=== PATIENT | female | born 1990 | race American Indian/Alaskan Native ===

== ENCOUNTER 2016-09-27 21:25 | Emergency (ER) | payer SELFPAY ==
[2016-09-27 21:50] VITALS: BP 116/70
[2016-09-27 22:35] LABS: Basophils % (Auto) 0.9 % (0.0-1.8); Eosinophils % (Auto) 1.4 % (0.0-4.3); Hematocrit 38.2 % (30.3-42.9); Hemoglobin 12.2 gm/dl (10.1-14.3); Mean Corpuscular HGB Conc 32 % (30-34); Mean Corpuscular Volume 78 fl (79-97); Platelet Count 242 K/mm3 (140-440); Red Blood Count 4.91 M/mm3 (3.65-5.03); Red Cell Distribution Width 16.8 % (13.2-15.2); White Blood Count 3.7 K/mm3 (4.5-11.0)
[2016-09-27 22:39] LABS: Mean Corpuscular Hemoglobin 25 pg (28-32)
[2016-09-27 22:49] LABS: Bilirubin,Urine NEG (Negative); Blood,Urine NEG (Negative); Ketones,Urine NEG (Negative); Leukocyte Esterase,Urine NEG (Negative); Nitrite,Urine NEG (Negative); Protein,Urine <15 mg/dL mg/dL (Negative); RBC,Urine < 1.0 /HPF (0.0-6.0); Urobilinogen,Urine < 2.0 mg/dL (<2.0); WBC,Urine < 1.0 /HPF (0.0-6.0)
[2016-09-27 22:55] LABS: Alanine Aminotransferase 14 units/L (7-56); Albumin 4.3 g/dL (3.9-5); Albumin/Globulin Ratio 1.4 %; Alkaline Phosphatase 71 units/L (35-129); Anion Gap 19 mmol/L; BUN/Creatinine Ratio 16.66; Bilirubin,Total 0.4 mg/dL (0.1-1.2); Blood Urea Nitrogen 10 mg/dL (7-17); Calcium 8.8 mg/dL (8.4-10.2); Carbon Dioxide 24 mmol/L (22-30); Chloride 99.2 mmol/L (98-107); Glucose 81 mg/dL (65-100); Lipase 18 units/L (13-60); Potassium 3.9 mmol/L (3.6-5.0); Sodium 138 mmol/L (137-145); Total Protein 7.3 g/dL (6.3-8.2)
--- NOTE | 2016-09-29 12:09 | ED Elopement Review ---
ED Pt Elopement review - Results review Lab results: Laboratory Tests 09/27/16 09/27/16 09/27/16 22:15 22:15 22:25 WBC 3.7 L RBC 4.91 Hgb 12.2 Hct 38.2 MCV 78 L MCH 25 L MCHC 32 RDW 16.8 H Plt Count 242 Lymph % (Auto) 45.2 H [place] % (Auto) 9.0 H Eos % (Auto) 1.4 Baso % (Auto) 0.9 Lymph # 1.7 [place] # 0.3 Eos # 0.1 Baso # 0.0 Seg Neutrophils % 43.5 Seg Neutrophils # 1.6 L Sodium 138 Potassium 3.9 Chloride 99.2 Carbon Dioxide 24 Anion Gap 19 BUN 10 Creatinine 0.6 L Estimated GFR > 60 BUN/Creatinine Ratio 16.66 Glucose 81 Calcium 8.8 Total Bilirubin 0.4 AST 23 ALT 14 Alkaline Phosphatase 71 Total Protein 7.3 Albumin 4.3 Albumin/Globulin Ratio 1.4 Lipase 18 Urine Color Straw Urine Turbidity Clear Urine pH 7.0 Ur Specific [place] 1.013 Urine Protein <15 mg/dl Urine Glucose (UA) Neg Urine Ketones Neg Urine Blood Neg Urine Nitrite Neg Urine Bilirubin Neg Urine Urobilinogen < 2.0 Ur Leukocyte Esterase Neg Urine WBC (Auto) < 1.0 Urine RBC (Auto) < 1.0 U Epithel Cells (Auto) < 1.0 Urine HCG, Qual Negative - Call Back decision Pt Call Back Decision: No action required
== END 2016-09-28 05:00 | disposition left against medical advice (07) ==
LOC: ED 21:25
DX: R10.30 Lower abdominal pain, unspecified (principal); M54.5 Low back pain; Z53.21 Procedure and treatment not carried out due to patient leaving prior to being seen by health care provider
CPT/HCPCS: 36415; 80053; 81001; 81025; 83690; 85025